=== PATIENT | male | born 1945 ===

== ENCOUNTER 2022-07-20 08:35 | Day surgery (SDC) | payer OTHER ==
[2022-07-18 14:46] VITALS: BMI 32.1
[2022-07-20] MEDS ORDERED: Lidocaine 2% MPF 10 ML AMP (For Epidural Use) ONE (10:31)
[2022-07-20] MEDS ORDERED: PROPOFOL 20 ML ONE (10:32)
[2022-07-20] MEDS ORDERED: ePHEDrine Sulfate 50 MG/10 ML VIAL ONE (10:32)
[2022-07-20] MEDS ORDERED: PHENYLEPHRINE-NS 100 MCG/ML 10 ML SYRINGE ONE (10:34)
== END 2022-07-20 11:40 | disposition home or self-care (01) ==
LOC: CSHSDC 08:35
PROVIDERS: ATTEND Internal Medicine Gastroenterology
PROC: 0DBN8ZZ Excision of Sigmoid Colon, Via Natural or Artificial Opening Endoscopic (ICD-10-PCS; principal; 2022-07-20)
PROC: 0DBH8ZZ Excision of Cecum, Via Natural or Artificial Opening Endoscopic (ICD-10-PCS; principal; 2022-07-20)
DX: Z12.11 Encounter for screening for malignant neoplasm of colon (principal); K62.1 Rectal polyp; D12.0 Benign neoplasm of cecum; K64.9 Unspecified hemorrhoids; E78.5 Hyperlipidemia, unspecified; F43.10 Post-traumatic stress disorder, unspecified; G47.00 Insomnia, unspecified; M19.90 Unspecified osteoarthritis, unspecified site; E66.9 Obesity, unspecified; Z86.010 Personal history of colon polyps; Z88.8 Allergy status to other drugs, medicaments and biological substances; Z79.899 Other long term (current) drug therapy; Z68.32 Body mass index [BMI] 32.0-32.9, adult
CPT/HCPCS: 88305; J2704